=== PATIENT | female | born 1970 | race Native Hawaiian/Other Pacific Islander ===

== ENCOUNTER 2018-05-01 11:16 | Emergency (ER) | payer OTHER ==
[~2018-05-01] VITALS: Ht 157.5 cm; Wt 111.1 kg
[2018-05-01 11:16] VITALS: TEMP 98.2
[2018-05-01 12:27] LABS: PLATELET COUNT 172 K/uL (152-353)
[2018-05-01 12:33] LABS: POTASSIUM 3.5 mmol/L (3.6-5.2); SODIUM 142 mmol/L (136-145)
[2018-05-01 15:25] VITALS: BP 147/86
== END 2018-05-01 15:25 | disposition home or self-care (01) ==
LOC: ED 11:18
PROVIDERS: Family Medicine
DX: R42 Dizziness and giddiness (principal); R51 Headache; R11.2 Nausea with vomiting, unspecified
CPT/HCPCS: 80053; 81000; 82550; 84484; 85027; 93005; 96365; 96374; 96375; 99284; J1885; J2405

== ENCOUNTER 2019-03-16 10:03 | Emergency (ER) | payer OTHER ==
[~2019-03-16] VITALS: Ht 157.5 cm; Wt 111.1 kg
[2019-03-16 10:26] LABS: PLATELET COUNT 198 K/uL (152-353)
[2019-03-16 10:32] LABS: POTASSIUM 3.6 mmol/L (3.6-5.2)
[2019-03-16 17:45] VITALS: BP 179/91; TEMP 97.5
== END 2019-03-16 17:45 | disposition home or self-care (01) ==
LOC: ED 10:03
PROVIDERS: Emergency Medicine
DX: F32.9 Major depressive disorder, single episode, unspecified (principal)
CPT/HCPCS: 80053; 80307; 80320; 80329; 81000; 85027; 93005; 99285

== ENCOUNTER 2019-10-14 09:49 | Outpatient (CLI) | payer OTHER ==
[2019-10-14 11:13] LABS: PLATELET COUNT 232 K/uL (152-353)
[2019-10-14 11:31] LABS: POTASSIUM 3.2 mmol/L (3.6-5.2); SODIUM 142 mmol/L (136-145)
== END 2019-10-14 22:37 | disposition home or self-care (01) ==
LOC: RESP 09:49
PROVIDERS: Nurse Practitioner Family
DX: R60.0 Localized edema (principal); E78.2 Mixed hyperlipidemia; R53.83 Other fatigue; E55.9 Vitamin D deficiency, unspecified
CPT/HCPCS: 80053; 80061; 82306; 82550; 82607; 83880; 84443; 84484; 85027

== ENCOUNTER 2019-10-25 15:38 | Outpatient (CLI) | payer OTHER | END 2019-10-25 23:05 | disposition home or self-care (01) | LOC: LABW 15:38 | DX: M25.50 Pain in unspecified joint (principal) | CPT/HCPCS: 36415; 85651; 86038; 86060; 86140; 86430 ==

== ENCOUNTER 2019-11-01 13:07 | Outpatient (CLI) | payer OTHER ==
[2019-11-01 14:00] LABS: PLATELET COUNT 189 K/uL (152-353)
[2019-11-01 14:08] LABS: POTASSIUM 3.3 mmol/L (3.6-5.2)
== END 2019-11-01 20:49 | disposition home or self-care (01) ==
LOC: US 13:07
PROVIDERS: Nurse Practitioner Family
DX: U07.1 COVID-19 (principal); R60.0 Localized edema
CPT/HCPCS: 36415; 80053; 81000; 83880; 85027; 85651; 93005

== ENCOUNTER 2019-12-03 07:31 | Emergency (ER) | payer OTHER ==
[~2019-12-03] VITALS: Ht 157.5 cm; Wt 111.1 kg
[2019-12-03 07:43] VITALS: TEMP 98.6
[2019-12-03 09:10] VITALS: BP 176/93
== END 2019-12-03 09:10 | disposition home or self-care (01) ==
LOC: ED 07:31
DX: R05 Cough (principal); F17.210 Nicotine dependence, cigarettes, uncomplicated; R06.02 Shortness of breath
CPT/HCPCS: 99283